=== PATIENT | male | born 1990 | race Caucasian/White ===

== ENCOUNTER 2022-01-20 18:21 | Emergency (ER) | payer SELFPAY ==
[~2022-01-20] VITALS: Ht 175.3 cm; Wt 91.0 kg
[2022-01-20 18:29] VITALS: BP 145/89
[2022-01-21] MEDS ORDERED: VISCOUS LIDOCAINE 2% 15 ML UDC MM STA (00:36)
== END 2022-01-21 01:50 | disposition home or self-care (01) ==
LOC: ER 18:21
DX: K20.90 Esophagitis, unspecified without bleeding (principal)
CPT/HCPCS: 71045; 99283